=== PATIENT | male | born 1990 | race Caucasian/White ===

== ENCOUNTER 2017-02-01 21:31 | Emergency (ER) | payer SELFPAY ==
[2017-02-01 22:24] VITALS: BP 135/87
== END 2017-02-01 23:44 | disposition left against medical advice (07) ==
LOC: UCEAST 21:31
DX: R11.10 Vomiting, unspecified (principal); R19.7 Diarrhea, unspecified; Z53.21 Procedure and treatment not carried out due to patient leaving prior to being seen by health care provider

== ENCOUNTER 2017-02-02 13:11 | Emergency (ER) | payer SELFPAY ==
[2017-02-02 14:22] VITALS: BP 128/66
--- NOTE | 2017-02-02 14:54 | UC ---
UC General HPI - HPI Summary HPI Summary: The patient comes in today for: 1. Fatigue and diarrhea Onset: 7 days. Palliative/provocative: Nothing makes his symptoms better or worse except exertion, but he states that he is getting better. Quality: Cramping. Region: Abdomen Severity: 0/10 Time: Comes and goes. Associated symptoms: He works at [employer] in [place] Diarrhea: He usually has (he has Crohn's disease) 4-6 stools/day. But over the last week he has been having 8-14 stools. No blood mucous or pus. 02/02: 4 stools 02/01: 8-9 stools 01/31: 9-12 stools 01/30: 12-14 stools Fever: None. Vomiting: He had vomiting 3 days ago--but none in the last 2 days. Urination: He states that he is urinating normally in terms of frequency, but there is an odor to it and it is darker (medium yellow). It was darker before. Abdominal cramps: More than normal over the last week. But, he states that the cramping today is more normal. Patient does not have a primary care provider and avoids hospital and medical offices due to past painful experiences. * - History of Current Complaint Chief Complaint: UCGI Stated Complaint: DIARRHEA Time Seen by Provider: 02/02/17 14:45 Hx Obtained From: Patient - Allergy/Home Medications Allergies/Adverse Reactions: Allergies Allergy/AdvReac Type Severity Reaction Status Date / Time Penicillins Allergy Severe Anaphylatic Verified 02/02/17 14:22 Shock Seasonal Allergies Allergy Runny Nose Uncoded 02/01/17 22:24 Home Medications: Home Medications B-Complex W/Biotin & Folic Aci [Super B-Complex] 3 cap PO DAILY 02/02/17 [ History Confirmed 02/02/17] PMH/Surg Hx/FS Hx/Imm Hx Previously Healthy: No - Crohn's Endocrine History Of: Denies: Diabetes, Thyroid Disease, Hyperthyroidism, Hypothyroidism, Dyslipidemia Cardiovascular History Of: Denies: Cardiac Disorders, Hypertension, Pacemaker/ICD, Myocardial Infarction , Congestive Heart Failure, Atrial Fibrillation, Deep Vein Thrombosis, Bleeding Disorders Respiratory History Of: Denies: COPD, Asthma, Bronchitis, Pneumonia, Pulmonary Embolism GI/ History Of: Denies: Gastroesophageal Reflux, Ulcer, Gastrointestinal Bleed, Gall Bladder Disease, Kidney Stones, Diverticulitis, Renal Disease, Urosepsis Neurological History Of: Denies: TIA, CVA, Dementia, Seizures, Migraine Psychological History Of: Denies: Anxiety, Depression, Bipolar Disorder, Schizophrenia, Post Traumatic Stress Disorder Cancer History Of: Denies: Lung Cancer, Colorectal Cancer, Breast Cancer, Prostate Cancer, Cervical Cancer Other History Of: Negative For: HIV, Hepatitis B, Hepatitis C, Anticoagulant Therapy - Surgical History Surgical History: Yes Surgery Procedure, Year, and Place: tonsillectomy, colonoscopy, gastroscopy - Family History Known Family History: Positive: Cardiac Disease, Diabetes - Social History Occupation: Employed Full-time Alcohol Use: None Substance Use Type: None Smoking Status (MU): Heavy Every Day Tobacco Smoker Type: Cigarettes Amount Used/How Often: 1/2 ppd Length of Time of Smoking/Using Tobacco: 10 years Have You Smoked in the Last Year: Yes - Immunization History Most Recent Influenza Vaccination: season Review of Systems Constitutional: Negative Skin: Negative Eyes: Negative ENT: Negative Respiratory: Negative Cardiovascular: Negative Gastrointestinal: Diarrhea Genitourinary: Negative All Other Systems Reviewed And Are Negative: Yes Physical Exam Triage Information Reviewed: Yes Appearance: Well-Appearing, No Pain Distress, Well-Nourished, Thin Vital Signs: Initial Vital Signs Temp 98.8 F 02/02/17 14:15 Pulse 65 02/02/17 14:15 Resp 16 02/02/17 14:15 BP 128/66 02/02/17 14:15 Pulse Ox 100 02/02/17 14:15 Vital Signs Reviewed: Yes Eyes: Positive: Conjunctiva Clear. Negative: Discharge ENT: Positive: Hearing grossly normal. Negative: Pharyngeal erythema, Nasal congestion, Nasal drainage, TM bulging, TM dull, TM red, Tonsillar swelling, Tonsillar exudate Dental: Negative: Gross Decay/Caries @, Dental Fracture @ Neck: Positive: Supple, Nontender, No Lymphadenopathy. Negative: Nuchal Rigidity Respiratory: Positive: Chest non-tender, Lungs clear, No respiratory distress, No accessory muscle use. Negative: Crackles, Wheezing Cardiovascular: Positive: RRR, No Murmur Abdomen Description: Positive: No Organomegaly, Soft. Negative: Nontender - He has tenderness just to the left of the epigastric area, but no masses. He states that this is his usual Crohn's abdominal pain., Distended, Guarding Musculoskeletal: Positive: Strength Intact, ROM Intact, No Edema Neurological: Positive: Alert, Muscle Tone Normal Psychological: Positive: Age Appropriate Behavior, Consolable Skin: Negative: rashes, breakdown Course/Dx - Course Course Of Treatment: Patient told that he appears to be recovering from a viral gastroenteritis on top of his Crohns. He was told to rest and increase liquids. He wants to go back to work tomorrow. - Differential Dx - Multi-Symptom Provider Diagnoses: Crohn's disease. Viral gastroenteritis Discharge - Discharge Plan Condition: Stable Disposition: HOME Patient Education Materials: Gastroenteritis (ED) Forms: *Work Release Referrals: No Primary Care Phys,NOPCP [Primary Care Provider] - [facility] [Outside]
== END 2017-02-02 15:18 | disposition home or self-care (01) ==
LOC: UCEAST 13:11
DX: K50.90 Crohn's disease, unspecified, without complications (principal); A08.4 Viral intestinal infection, unspecified; F17.210 Nicotine dependence, cigarettes, uncomplicated; Z88.0 Allergy status to penicillin
CPT/HCPCS: 99211; G0463

== ENCOUNTER 2018-09-02 20:25 | Emergency (ER) | payer SELFPAY ==
[2018-09-02] MEDS ORDERED: HYDROcodone/ACETAMIN 5-325 MG* 1 TAB PO ONE (22:43)
--- NOTE | 2018-09-02 23:03 | ED ---
Upper Extremity Pain - HPI Summary HPI Summary: Patient complains of fall with subsequent right hand pain and swelling. Denies any other pain, injury, symptoms. - History of Current Complaint Chief Complaint: EDExtremityUpper Stated Complaint: RT HAND INJURY Time Seen by Provider: 09/02/18 21:37 Hx Obtained From: Patient Mechanism Of Injury: Fall From A Standing Position Onset/Duration: Started Hours Ago Timing: Constant Severity Initially: Moderate Severity Currently: Moderate Pain Location: Hand Character: Sharp, Throbbing Aggravating Factor(s): Movement Alleviating Factor(s): Nothing Associated Signs & Symptoms: Positive: Swelling - Allergies/Home Medications Allergies/Adverse Reactions: Allergies Allergy/AdvReac Type Severity Reaction Status Date / Time MS Penicillins [Penicillins] Allergy Severe Anaphylatic Verified 02/02/17 14:22 Shock Seasonal Allergies Allergy Runny Nose Uncoded 02/01/17 22:24 PMH/Surg Hx/FS Hx/Imm Hx Endocrine/Hematology History: Denies: Hx Anticoagulant Therapy, Hx Diabetes, Hx Thyroid Disease Cardiovascular History: Denies: Hx Congestive Heart Failure, Hx Deep Vein Thrombosis, Hx Hypertension , Hx Myocardial Infarction, Hx Pacemaker/ICD Respiratory History: Denies: Hx Asthma, Hx Chronic Obstructive Pulmonary Disease (COPD), Hx Lung Cancer, Hx Pneumonia, Hx Pulmonary Embolism GI History: Denies: Hx Gall Bladder Disease, Hx Gastrointestinal Bleed, Hx Ulcer, Hx Urosepsis History: Denies: Hx Kidney Stones, Hx Renal Disease Neurological History: Denies: Hx Dementia, Hx Migraine, Hx Seizures, Hx Transient Ischemic Attacks (TIA) Psychiatric History: Denies: Hx Anxiety, Hx Depression, Hx Schizophrenia, Hx Bipolar Disorder - Surgical History Surgery Procedure, Year, and Place: tonsillectomy, colonoscopy, gastroscopy Infectious Disease History: No Infectious Disease History: Denies: Hx Clostridium Difficile, Hx Hepatitis, Hx Human Immunodeficiency Virus (HIV), Hx of Known/Suspected MRSA, Hx Shingles, Hx Tuberculosis, Hx Known/ Suspected VRE, Hx Known/Suspected VRSA, History Other Infectious Disease, Traveled Outside the [place] in Last 30 Days - Family History Known Family History: Positive: Cardiac Disease, Diabetes - Social History Alcohol Use: None Substance Use Type: Reports: Marijuana Smoking Status (MU): Heavy Every Day Tobacco Smoker Type: Cigarettes Amount Used/How Often: 1/2 ppd Length of Time of Smoking/Using Tobacco: 10 years Have You Smoked in the Last Year: Yes Review of Systems Constitutional: Negative Eyes: Negative ENT: Negative Cardiovascular: Negative Respiratory: Negative Gastrointestinal: Negative Genitourinary: Negative Musculoskeletal: Other Skin: Negative Neurological: Negative Psychological: Normal All Other Systems Reviewed And Are Negative: Yes Physical Exam - Summary Physical Exam Summary: Swelling to lateral right hand. PMS intact distally. No ecchymosis, erythema, extra warmth, deformity noted. Triage Information Reviewed: Yes Vital Signs On Initial Exam: Initial Vitals Temp Pulse Resp BP Pulse Ox 97.7 F 68 22 150/77 99 09/02/18 20:30 09/02/18 20:30 09/02/18 20:30 09/02/18 20:30 09/02/18 20:30 Vital Signs Reviewed: Yes Appearance: Positive: Well-Appearing Skin: Positive: Warm Head/Face: Positive: Normal Head/Face Inspection Eyes: Positive: Normal Neck: Positive: Supple Respiratory/Lung Sounds: Positive: Clear to Auscultation Cardiovascular: Positive: Normal Abdomen Description: Positive: Nontender Musculoskeletal: Positive: Normal Neurological: Positive: Normal Psychiatric: Positive: Normal AVPU Assessment: Alert - Finley Coma Scale Best Eye Response: 4 - Spontaneous Best Motor Response: 6 - Obeys Commands Best Verbal Response: 5 - Oriented Coma Scale Total: 15 Procedures - Splinting 1 Location: right wrist Hand-Made Type: orthoglass Splint: ulnar Pre-Proc Neuro Vasc Exam: normal Post-Proc Neuro Vasc Exam: normal Diagnostics - Vital Signs Vital Signs Temp Pulse Resp BP Pulse Ox 09/02/18 20:30 97.7 F 68 22 150/77 99 - Laboratory Lab Statement: Any lab studies that have been ordered have been reviewed, and results considered in the medical decision making process. Course/Dx - Course Course Of Treatment: Patient complains of fall with subsequent right hand pain and swelling. Denies any other pain, injury, symptoms. Physical exam:Swelling to lateral right hand. PMS intact distally. No ecchymosis, erythema, extra warmth, deformity noted. X-ray positive for boxer's fracture. ulnar gutter splint placed. Follow-up with orthopedics. - Diagnoses Provider Diagnoses: Fracture of fifth metacarpal bone Discharge - Sign-Out/Discharge Documenting (check all that apply): Patient Departure - Discharge Plan Condition: Stable Disposition: HOME Prescriptions: HYDROcodone/ACETAMIN 5-325 MG* [[place] 5-325 TAB*] 1 tab PO Q6H PRN 2 Days #8 tab MDD 3-4 tabs PRN Reason: Pain Patient Education Materials: Boxer Fracture (ED) Referrals: No Primary Care Phys,NOPCP [Primary Care Provider] - Jessy Hsu MD [Medical Doctor] - Additional Instructions: Follow-up with orthopedics Dr. Hsu. Return to the ED for any new or worsening symptoms. - Billing Disposition and Condition Condition: STABLE Disposition: Home
[2018-09-02 23:04] VITALS: BP 118/79
== END 2018-09-02 23:13 | disposition home or self-care (01) ==
LOC: ED 20:25
DX: S62.306A Unspecified fracture of fifth metacarpal bone, right hand, initial encounter for closed fracture (principal); W19.XXXA Unspecified fall, initial encounter; Y92.9 Unspecified place or not applicable; F17.210 Nicotine dependence, cigarettes, uncomplicated; Z88.0 Allergy status to penicillin
CPT/HCPCS: 99282